=== PATIENT | female | born 1945 | race Caucasian/White ===

== ENCOUNTER 2018-10-20 09:58 | Inpatient (IN) | payer MEDICARE ==
[~2018-10-20] VITALS: Ht 170.2 cm; Wt 70.0 kg
[2018-10-20] MEDS ORDERED: normal saline 1000ML IV soln IVB ONE (10:05)
--- NOTE | 2018-10-20 10:11 | NUR ---
patient came with a non rebreathing mask. pt is a dnr.
[2018-10-20 10:26] LABS: BASOPHILS # (AUTO) 0.1 X10'3 (0-0.2); BASOPHILS % (AUTO) 0.5 % (0-1); EOSINOPHILS # (AUTO) 0.2 X10'3 (0-0.9); EOSINOPHILS % (AUTO) 1.4 % (0-6); HEMATOCRIT 48.3 % (35.0-45.0); HEMOGLOBIN 15.4 g/dl (12.0-16.0); LYMPHOCYTES # (AUTO) 1.3 X10'3 (1.1-4.8); LYMPHOCYTES % (AUTO) 9.1 % (21-51); MEAN CORPUSCULAR HEMOGLOBIN 28.2 PG (27.0-31.0); MEAN CORPUSCULAR HGB CONC 31.8 % (33.0-36.5); MEAN CORPUSCULAR VOLUME 88.7 FL (78-98); MEAN PLATELET VOLUME 11.1 FL (7.4-10.4); MONOCYTES # (AUTO) 0.9 X10'3 (0-0.9); MONOCYTES % (AUTO) 5.9 % (2-12); NEUTROPHILS # (AUTO) 12.2 X10'3 (1.8-7.7); NEUTROPHILS % (AUTO) 83.1 % (42-75); PLATELET COUNT 268 X10'3 (140-440); RED BLOOD COUNT 5.44 X10'6 (4.20-5.60); WHITE BLOOD COUNT 14.6 X10'3 (4.5-11.0)
[2018-10-20 10:51] LABS: ABG BASE EXCESS -3.4 mmol/L (-2.0-3.0); ABG HCO3 18.2 mmol/L (22.0-26.0); ABG OXYGEN SATURATION 99.2 % (95-98); ABG PCO2 (T) 24.9 mmHg (32.0-45.0); ABG PH (T) 7.482 (7.350-7.450); FCOHb 0.6 % (0.5-1.5); FLOW 12 L/min; FMetHb 0.3 % (0.3-1.12); FO2Hb 98.3 % (94-100); TOTAL HEMOGLOBIN 14.5 G/dl (12.0-16.0)
[2018-10-20 10:52] LABS: INR 1.3 INR; PARTIAL THROMBOPLASTIN TIME 23 SECONDS (22-32); PROTHROMBIN TIME 12.7 SECONDS (9.0-12.0)
[2018-10-20 11:06] LABS: CLARITY,URINE CLOUDY (Clear); COLOR,URINE YELLOW (Yellow); GLUCOSE, URINE NEGATIVE (Neg); KETONES,URINE TRACE mg/dl (Neg); LEUKOCYTE ESTERASE ,URINE NEGATIVE (Neg); NITRITES, URINE NEGATIVE (Neg); OCCULT BLOOD,URINE TRACE-LYSED (Neg); PH,URINE 5.5 (4.8-8.0); PROTEIN,URINE 30 mg/dl (Neg)
[2018-10-20 11:09] LABS: UA COLLECTION TYPE OTHER
[2018-10-20 11:10] LABS: ALANINE AMINOTRANSFERASE 210 U/L (12-78); ALBUMIN 3.2 G/DL (3.4-5.0); ALBUMIN/GLOBULIN RATIO 0.8 (1.1-1.5); ALKALINE PHOSPHATASE 192 IU/L (46-116); ANION GAP 15 (8-16); ASPARTATE AMINO TRANSFERASE 194 U/L (10-37); BILIRUBIN,TOTAL 1.9 MG/DL (0.1-1.0); BLOOD UREA NITROGEN 64 MG/DL (7-18); CALCIUM 8.4 MG/DL (8.5-10.1); CHLORIDE 133 MMOL/L (99-107); CREATININE 2.37 MG/DL (0.40-0.90); GLUCOSE 128 MG/DL (70-104); MAGNESIUM 3.4 MG/DL (1.5-2.4); POTASSIUM 3.7 MMOL/L (3.5-5.1); TOTAL CARBON DIOXIDE 25.7 MMOL/L (24-32); TOTAL PROTEIN 7.3 G/DL (6.4-8.2); eGFR 20 ML/MIN
--- NOTE | 2018-10-20 11:17 | NUR ---
roshan de leon/spouse: [phone]
[2018-10-20 11:29] LABS: SODIUM 174 MMOL/L (135-145)
[2018-10-20] MEDS ORDERED: normal saline 1000ml 1,000 ML IV ONE (11:30)
--- NOTE | 2018-10-20 11:31 | NUR ---
OBTAINED VERBAL ORDER TO ADMIN 1L NS AFTER CMP.
--- NOTE | 2018-10-20 11:33 | NUR ---
PLACED A LOMELI,PATIENT TOLERATED WELL.DRAINING HAMMAD COLORED URINE.
--- NOTE | 2018-10-20 11:33 | NUR ---
PATIENT PLACED ON NC 3L.
[2018-10-20 11:46] LABS: AMORPHOUS URATES 1+; BACTERIA,URINE FEW /HPF (Neg); MUCUS STRANDS MODERATE /LPF (Neg); RBC,URINE 0-2 /HPF (0-2); SQUAMOUS EPITHELIAL CELL,UR MODERATE /LPF (FEW); WBC,URINE 0-4 /HPF (0-4)
[2018-10-20] MEDS ORDERED: CefTRIAXone 2gm/D5W 50ml 50 ML IV ONE (12:00)
--- NOTE | 2018-10-20 12:16 | NUR ---
dr. nicole at bedside.
--- NOTE | 2018-10-20 12:16 | NUR ---
ok to admin rocephin after verifying that patient is allergic to pcn(spouse does not remember the reaction from abt.ok to admin per Dr. Robles.
--- NOTE | 2018-10-20 12:34 | NUR ---
PATIENT'S SPOUSE REFUSED BLOOD DRAW FOR LACTIC,PAGED DR. LIM.
[2018-10-20] MEDS ORDERED: acetaminophen 325mg tablet PO PRN (12:40)
[2018-10-20] MEDS ORDERED: morphine 10mg/ml inj. IV PRN (12:40)
[2018-10-20] MEDS ORDERED: morphine 10mg/0.5ml (conc. morphine) oral syringe PO PRN (12:40)
[2018-10-20] MEDS ORDERED: LORazepam 2 mg/ml vial IV PRN (12:40)
--- NOTE | 2018-10-20 12:43 | NUR ---
SPOKE TO DR. LIM SAID THAT HE IS WORKING ON ORDERING COMFORT CARE FOR PATIENT,PAGED CASE MANAGEMENT FOR HOSPICE CARE CONSULT.
[2018-10-20 12:48] LABS: ALBUMIN 2.9 G/DL (3.4-5.0); ANION GAP 12 (8-16); BLOOD UREA NITROGEN 59 MG/DL (7-18); BUN/CREATININE RATIO 26.5 (6.6-38.0); CALCIUM 7.8 MG/DL (8.5-10.1); CHLORIDE 136 MMOL/L (99-107); CREATININE 2.23 MG/DL (0.40-0.90); GLUCOSE 112 MG/DL (70-104); POTASSIUM 3.7 MMOL/L (3.5-5.1); TOTAL CARBON DIOXIDE 25.2 MMOL/L (24-32); eGFR 22 ML/MIN
[2018-10-20 12:51] LABS: SODIUM 173 MMOL/L (135-145)
[2018-10-20] MEDS ORDERED: MIRT30TA8 PO (13:19)
[2018-10-20] MEDS ORDERED: MENT7.5L3 PO (13:19)
[2018-10-20] MEDS ORDERED: GUAI100L97 PO (13:19)
[2018-10-20] MEDS ORDERED: BENZ1TAB7 PO (13:19)
[2018-10-20] MEDS ORDERED: MAGN400O6 PO (13:19)
[2018-10-20] MEDS ORDERED: HALDOL TOP ×2 (13:19)
[2018-10-20] MEDS ORDERED: LEVE500V8 PO (13:19)
[2018-10-20] MEDS ORDERED: ACET-2119 PO (13:19)
[2018-10-20] MEDS ORDERED: LOPE-155 PO (13:19)
[2018-10-20] MEDS ORDERED: BISA10SU8 RC (13:19)
[2018-10-20] MEDS ORDERED: POLY255P19 PO (13:19)
[2018-10-20] MEDS ORDERED: LORA-269 PO (13:19)
[2018-10-20] MEDS ORDERED: MELA5TAB12 PO (13:19)
[2018-10-20] MEDS: polyethylene glycol 3350 17gm powd pack PO SCH (13:58)
--- NOTE | 2018-10-20 15:07 | NUR ---
SPOUSE AT BEDSIDE.
--- NOTE | 2018-10-20 15:32 | NUR ---
patient' spouse requests to admin ativan iv.
--- NOTE | 2018-10-20 17:51 | NUR ---
patient asleep respirations regular.
--- NOTE | 2018-10-20 18:44 | NUR ---
PT CURRENTLY RESTING EYES CLOSED AND RR EASY AND WNLS.
[2018-10-20] MEDS: benztropine 1mg tablet PO SCH (20:00)
[2018-10-20] MEDS: docusate sod 100mg capsule PO SCH (20:00)
[2018-10-20] MEDS: magnesium hydroxide 30ml (MOM) UD suspension PO SCH (20:00)
[2018-10-20] MEDS: mirtazapine 15mg tablet PO SCH (20:26)
--- NOTE | 2018-10-20 20:26 | NUR ---
SPOKE TO PRIMARY RN, SHE SAID NON ADMIN MEDICATIONS PT UNABLE TO SWALLOW OR FOLLOW COMMANDS TO TAKE MEDICATIONS///COMFORT CARE
[2018-10-20 21:40] VITALS: BP 120/71
[2018-10-20] MEDS ORDERED: morphine 4 MG/ML inj SYRINge IV PRN (21:41)
--- NOTE | 2018-10-21 06:30 | NUR ---
Patient in room [facility]. I have received report from Radha PORTER and had the opportunity to ask questions and assume patient care.
--- NOTE | 2018-10-21 06:38 | NUR ---
Reported off to Amy PORTER. Patient is awake and alert on 2LNC. In no apparent distress. Call light and items of frequent use within reach. Addendum: 10/21/18 at 0641 by Radha Smith RN omit wrong patient
--- NOTE | 2018-10-21 06:41 | NUR ---
Reported off to Amy PORTER. Patient is resting with relaxed and unlabored respirations on room air. In no apparent distress. Call light and items of frq use within reach.
[2018-10-21] MEDS: benztropine 1mg tablet PO SCH ×2 (07:32→20:00)
[2018-10-21] MEDS: magnesium hydroxide 30ml (MOM) UD suspension PO SCH ×2 (07:32→20:00)
[2018-10-21] MEDS: docusate sod 100mg capsule PO SCH ×2 (07:32→20:00)
[2018-10-21 08:18] VITALS: BP 94/47
--- NOTE | 2018-10-21 12:06 | NUR ---
Paged Dr. Humphreys for a Scopolamine patch.
--- NOTE | 2018-10-21 12:54 | NUR ---
Pt with low Prakash score of 10. Pt with no documented wounds, skin intact. Will continue to follow. Addendum: 10/21/18 at [address] Amended: Links added.
[2018-10-21] MEDS: scopolamine 1.5mg patch.TD72 TD SCH (14:18)
--- NOTE | 2018-10-21 18:10 | NUR ---
Problems reprioritized. Patient report given, questions answered & plan of care reviewed with Paula PORTER.
[2018-10-21 19:00] VITALS: BP 90/34
[2018-10-21] MEDS: mirtazapine 15mg tablet PO SCH (21:00)
--- NOTE | 2018-10-22 06:23 | NUR ---
Patient in room [facility]. I have received report from Paula PORTER and had the opportunity to ask questions and assume patient care.
--- NOTE | 2018-10-22 06:32 | NUR ---
Problems reprioritized. Patient report given, questions answered & plan of care reviewed with Amy PORTER. Addendum: 10/22/18 at 0633 by Paula Lopez RN Amended: Links added.
[2018-10-22] MEDS: docusate sod 100mg capsule PO SCH ×2 (06:41→19:55)
[2018-10-22] MEDS: benztropine 1mg tablet PO SCH ×2 (06:41→19:55)
[2018-10-22] MEDS: magnesium hydroxide 30ml (MOM) UD suspension PO SCH ×2 (06:42→19:55)
[2018-10-22 07:00] VITALS: BP 105/61
--- NOTE | 2018-10-22 09:32 | NUR ---
Pt has been made DNR w/ comfort care. Will follow per protocol. Addendum: 10/22/18 at [address] Amended: Links added.
[2018-10-22 18:00] VITALS: BP 92/47
--- NOTE | 2018-10-22 18:17 | NUR ---
Problems reprioritized. Patient report given, questions answered & plan of care reviewed with Ann PORTER.
--- NOTE | 2018-10-22 18:30 | NUR ---
Patient in room [facility]. I have received report from Amy PORTER and had the opportunity to ask questions and assume patient care.
[2018-10-22] MEDS: mirtazapine 15mg tablet PO SCH (21:00)
--- NOTE | 2018-10-23 06:01 | NUR ---
Problems reprioritized. Patient report given, questions answered & plan of care reviewed with Amy PORTER.
[2018-10-23] MEDS: benztropine 1mg tablet PO SCH ×2 (08:00→20:00)
[2018-10-23] MEDS: docusate sod 100mg capsule PO SCH ×2 (08:00→20:00)
[2018-10-23] MEDS: magnesium hydroxide 30ml (MOM) UD suspension PO SCH ×2 (08:00→20:00)
[2018-10-23 08:26] VITALS: BP 111/62
--- NOTE | 2018-10-23 13:50 | NUR ---
SS consulted w/CM re pt's SS referral needs, per consultation, CM will coordinate Hospice services and pt will rt to her assisted living facility w/hospice care. No additional need from SS at this time. SS referral closed.
--- NOTE | 2018-10-23 18:09 | NUR ---
Patient in room [facility]. I have received report from Amy PORTER and had the opportunity to ask questions and assume patient care.
--- NOTE | 2018-10-23 18:09 | NUR ---
Problems reprioritized. Patient report given, questions answered & plan of care reviewed with Maryann PORTER.
[2018-10-23 19:54] VITALS: BP 100/35
[2018-10-23] MEDS: mirtazapine 15mg tablet PO SCH (21:00)
--- NOTE | 2018-10-24 06:30 | NUR ---
Patient in room [facility]. I have received report from Maryann PORTER and had the opportunity to ask questions and assume patient care.
--- NOTE | 2018-10-24 06:36 | NUR ---
Problems reprioritized. Patient report given, questions answered & plan of care reviewed with Lakisha PORTER.
[2018-10-24 06:59] VITALS: BP 83/40
[2018-10-24] MEDS: polyethylene glycol 3350 17gm powd pack PO SCH (07:47)
[2018-10-24] MEDS: benztropine 1mg tablet PO SCH ×2 (07:47→19:58)
[2018-10-24] MEDS: magnesium hydroxide 30ml (MOM) UD suspension PO SCH ×2 (07:47→19:58)
[2018-10-24] MEDS: docusate sod 100mg capsule PO SCH ×2 (07:47→19:58)
[2018-10-24] MEDS: scopolamine 1.5mg patch.TD72 TD SCH (11:59)
--- NOTE | 2018-10-24 18:31 | NUR ---
Problems reprioritized. Patient report given, questions answered & plan of care reviewed with Maryann PORTER.
[2018-10-24 19:57] VITALS: BP 97/51
--- NOTE | 2018-10-24 19:59 | NUR ---
Pt axillary temperature of 103.2F. Pulled her blankets down and left one sheet on her. turned the room temperature down as well. will check temperature.
[2018-10-24] MEDS: mirtazapine 15mg tablet PO SCH (20:27)
--- NOTE | 2018-10-25 06:33 | NUR ---
Problems reprioritized. Patient report given, questions answered & plan of care reviewed with Monique PORTER.
[2018-10-25 07:30] VITALS: BP 102/64
[2018-10-25] MEDS: magnesium hydroxide 30ml (MOM) UD suspension PO SCH ×2 (08:00→19:18)
[2018-10-25] MEDS: benztropine 1mg tablet PO SCH ×2 (08:00→19:18)
[2018-10-25] MEDS: docusate sod 100mg capsule PO SCH ×2 (08:00→19:18)
--- NOTE | 2018-10-25 18:30 | NUR ---
Patient in room [facility]. I have received report from CHARLOTTE Amaya and had the opportunity to ask questions and assume patient care.
--- NOTE | 2018-10-25 18:33 | NUR ---
Problems reprioritized. Patient report given, questions answered & plan of care reviewed with CHARLOTTE Dixon.
[2018-10-25 20:00] VITALS: BP 101/64
[2018-10-25] MEDS: mirtazapine 15mg tablet PO SCH (21:00)
--- NOTE | 2018-10-26 06:13 | NUR ---
Patient in room [facility]. I have received report from CHARLOTTE Dixon and had the opportunity to ask questions and assume patient care.
--- NOTE | 2018-10-26 06:19 | NUR ---
Problems reprioritized. Patient report given, questions answered & plan of care reviewed with CHARLOTTE Mosqueda.
[2018-10-26 07:28] VITALS: BP 104/48
[2018-10-26] MEDS: magnesium hydroxide 30ml (MOM) UD suspension PO SCH (08:00)
[2018-10-26] MEDS: benztropine 1mg tablet PO SCH (08:00)
[2018-10-26] MEDS: docusate sod 100mg capsule PO SCH (08:00)
[2018-10-26] MEDS ORDERED: morphine 2 MG/ML inj. syringe IV PRN (11:20)
--- NOTE | 2018-10-26 14:00 | NUR ---
Family is okay with staff continuing to turn patient when needed. They also want her to get the 4mg of morphine when necessary; every two hours if possible.
[2018-10-26] MEDS: morphine 4 MG/ML inj SYRINge IV PRN ×3 (14:25→18:49)
--- NOTE | 2018-10-26 18:04 | NUR ---
Problems reprioritized. Patient report given, questions answered & plan of care reviewed with CHARLOTTE Dixon.
--- NOTE | 2018-10-26 19:30 | NUR ---
RN IS TO DOCUMENT YES TO ALL APPLICABLE AREAS Pronouncement of : 1. Time Physician Notified: 1934 2. Date of : 10/26/18 3. Time of : 1919 4. DNR/Withdraw life support documented: yes 5. Monitor strip has been placed on chart: no 6. Assessment process is of one-minute duration and includes following criteria: a) Patient is unresponsive to all stimuli: yes b) Pupils fixed and non-reactive: yes c) Auscultation of precordium reveals absence of heart tones: yes d) Auscultation of lungs reveals absence of breath sounds: yes e) Absence of blood pressure / all vital signs: yes f) QRS complexes are not present on monitor / EKG strip: n/a g) Pacer spikes without capture: n/a 4. Comments:
--- NOTE | 2018-10-26 19:35 | NUR ---
Dr. Booth has been notified of patients passing.
--- NOTE | 2018-10-26 19:50 | NUR ---
[facility] has been called. Spoke to Enrike Dao, ref # [id number]
--- NOTE | 2018-10-26 20:05 | NUR ---
[facility] in [place], [place] has been called. phone # [phone]
--- NOTE | 2018-10-26 20:29 | NUR ---
[facility] Tissue donation called back and said patient is nto a candidate of donation.
--- NOTE | 2018-10-26 22:05 | NUR ---
[facility] has come to [facility] patients body
== END 2018-10-26 19:20 | disposition expired | DRG 683 ==
LOC: ER 09:59 → ED HOLD 13:14 → EDBEDREQ 21:22 → SUR 3N 21:35
PROVIDERS: ADMIT Internal Medicine; ATTEND Family Medicine
DX: N17.9 Acute kidney failure, unspecified (principal); E87.0 Hyperosmolality and hypernatremia; E86.0 Dehydration; D72.829 Elevated white blood cell count, unspecified; F03.90 Unspecified dementia, unspecified severity, without behavioral disturbance, psychotic disturbance, mood disturbance, and anxiety; R62.7 Adult failure to thrive; Z66 Do not resuscitate; Z51.5 Encounter for palliative care; R74.0 Nonspecific elevation of levels of transaminase and lactic acid dehydrogenase [LDH]; Z88.0 Allergy status to penicillin; Z79.899 Other long term (current) drug therapy
CPT/HCPCS: 36415; 36600; 70450; 71045; 80048; 80053; 81001; 82803; 82948; 83605; 83735; 83880; 84145; 84484; 85018; 85025; 85610; 85730; 87040; 87070; 93005; G0378; J0696; J2060; J2270